=== PATIENT | female | born 1990 | race Caucasian/White ===

== ENCOUNTER → 2018-04-26 | Outpatient (CLI) | payer OTHER ==
--- NOTE | 2018-04-26 09:11 | XR ---
EXAMINATION TYPE: XR shoulder complete RT DATE OF EXAM: 04/26/2018 COMPARISON: NONE HISTORY: Pain TECHNIQUE: Three views are submitted. FINDINGS: The osseous structures are intact. There is no acute fracture or dislocation. The AC joint is maint ained. IMPRESSION: 1. No acute process.
== END | disposition home or self-care (01) ==
LOC: RADXRMAIN 08:43
PROVIDERS: ATTEND Nurse Practitioner Adult Health
DX: M25.511 Pain in right shoulder (principal)

== ENCOUNTER → 2018-12-06 | Outpatient (CLI) | payer OTHER | END | disposition home or self-care (01) | LOC: LABWHC1 09:28 | PROVIDERS: ATTEND Obstetrics & Gynecology | DX: N92.6 Irregular menstruation, unspecified (principal) | CPT/HCPCS: 36415; 84702 ==

== ENCOUNTER 2020-07-07 14:13 | Emergency (ER) | payer OTHER ==
[2020-07-07 14:23] VITALS: TEMP 98.4
--- NOTE | 2020-07-07 15:03 | ED ---
Chest Pain HPI - General Chief Complaint: Chest Pain Stated Complaint: Chest pain Time Seen by Provider: 07/07/20 14:51 Source: patient Mode of arrival: ambulatory Limitations: no limitations - History of Present Illness Initial Comments: 30-year-old female presenting to the emergency department with a chief complaint of chest pain or shortness of breath. Patient states symptoms began about 3 weeks ago with gradual increase in severity. Patient reports the increased with dyspnea on exertion. She also reports the pain is exacerbated when taking deep breaths. Patient states the pain is midsternal without any radiation. Denies any diaphoretic episodes, lightheadedness or dizziness. She denies any visual changes, headaches, one-sided weakness or paresthesias. Denies taking medication to alleviate the symptoms. She does report right-sided lower extremity swelling. She also reports some calf tenderness in the right leg as well. No previous history of DVT or PE. She does report a cough but states that is secondary to his smoking. Denies hemoptysis. She denies recent hospitalization. No chemotherapy or neoplasms. - Related Data Home Medications Medication Instructions Recorded Confirmed Ferrous Sulfate [Feosol] 325 mg PO DAILY 07/07/20 07/07/20 Allergies Allergy/AdvReac Type Severity Reaction Status Date / Time Sulfa (Sulfonamide Allergy Rash/Hives Verified 07/07/20 16:00 Antibiotics) Review of Systems ROS Statement: Those systems with pertinent positive or pertinent negative responses have been documented in the HPI. ROS Other: All systems not noted in ROS Statement are negative. EKG Findings - EKG Comments: EKG Findings:: Sinus rhythm with short WI. Ventricular rate 74, WI 110, QRS 84, QTC 452. Past Medical History Past Medical History: No Reported History History of Any Multi-Drug Resistant Organisms: None Reported Past Surgical History: Section Past Psychological History: Depression Smoking Status: Current every day smoker Past Alcohol Use History: Occasional Past Drug Use History: Marijuana General Exam Limitations: no limitations General appearance: alert, in no apparent distress Head exam: Present: atraumatic, normocephalic, normal inspection. Absent: other Eye exam: Present: normal appearance, PERRL, EOMI Pupils: Present: normal accommodation ENT exam: Present: normal exam, normal oropharynx, mucous membranes moist, TM's normal bilaterally, normal external ear exam Neck exam: Present: normal inspection, full ROM. Absent: tenderness Respiratory exam: Present: normal lung sounds bilaterally. Absent: respiratory distress, wheezes, rales Cardiovascular Exam: Present: regular rate, normal rhythm, normal heart sounds. Absent: systolic murmur GI/Abdominal exam: Present: soft. Absent: distended, tenderness, guarding Extremities exam: Present: normal inspection, full ROM, normal capillary refill. Absent: tenderness, pedal edema, joint swelling Back exam: Present: normal inspection, full ROM. Absent: tenderness, CVA tenderness (R), CVA tenderness (L), muscle spasm, paraspinal tenderness, vertebral tenderness Neurological exam: Present: alert, oriented X3, normal gait Psychiatric exam: Present: normal affect, normal mood Skin exam: Present: warm, dry, intact, normal color Course Vital Signs 07/07/20 07/07/20 07/07/20 14:20 15:30 17:18 Temperature 98.4 F Pulse Rate 91 75 Pulse Rate [ 72 Projects Manager ] Respiratory 18 16 Rate Blood Pressure 134/79 126/84 O2 Sat by Pulse 98 100 Oximetry Chest Pain MDM - MDM 30-year-old female presenting to the emergency room with a chief complaint of chest pain. On initial evaluation, patient did complain of some right lower extremity swelling. Atypical chest pain with atypical features. She did have positive Homans of the right lower extremity. Laboratory workup was initiated. There was a concern for a PE. CBC CMP is unremarkable. Chest x-ray is unremarkable. EKG showing sinus rhythm with short WI. Initial troponin is negative. D-dimer negative. Strict return parameters were thoroughly discussed with patient is a 17 agreeable. Case discussed with physician. Disposition Clinical Impression: Atypical chest pain Disposition: HOME SELF-CARE Condition: Stable Instructions (If sedation given, give patient instructions): Chest Pain (ED) Additional Instructions: Follow with the primary care physician. Return to emergency department if symptoms worsen. Is patient prescribed a controlled substance at d/c from ED?: No Referrals: June Lr NPC [Primary Care Provider] - 1-2 days Time of Disposition: 16:20
[2020-07-07 15:28] LABS: Basophils % (A) 0 %; Eosinophils % (A) 0 %; HCT 44.1 % (34.0-46.0); HGB 14.5 gm/dL (11.4-16.0); Lymphocytes # (A) 2.9 k/uL (1.0-4.8); Lymphocytes % (A) 33 %; MCHC 32.8 g/dL (31.0-37.0); MCV 100.5 fL (80.0-100.0); Mean Platelet Volume 7.9; Monocytes # (A) 0.4 k/uL (0-1.0); Monocytes % (A) 4 %; Neutrophils # (A) 5.3 k/uL (1.3-7.7); Neutrophils % (A) 61 %; Platelet Count 186 k/uL (150-450); RBC 4.39 m/uL (3.80-5.40); RDW 12.2 % (11.5-15.5); WBC 8.7 k/uL (3.8-10.6)
[2020-07-07 15:40] LABS: ALT 14 U/L (4-34); AST 27 U/L (14-36); African American GFR (CKD) >90 (>60 ml/min/1.73 sqM); Albumin 4.6 g/dL (3.5-5.0); Alkaline Phosphatase 45 U/L (38-126); Anion Gap 9 mmol/L; Blood Urea Nitrogen 15 mg/dL (7-17); Calcium 9.5 mg/dL (8.4-10.2); Carbon Dioxide 21 mmol/L (22-30); Chloride 106 mmol/L (98-107); Glucose 91 mg/dL (74-99); Magnesium 2.1 mg/dL (1.6-2.3); Non-African American GFR(CKD) >90 (>60 ml/min/1.73 sqM); Potassium 4.2 mmol/L (3.5-5.1); Sodium 136 mmol/L (137-145); Total Bilirubin 0.6 mg/dL (0.2-1.3); Total Protein 7.3 g/dL (6.3-8.2)
--- NOTE | 2020-07-07 15:49 | XR ---
EXAMINATION TYPE: XR chest 2V DATE OF EXAM: 07/07/2020 COMPARISON: NONE HISTORY: Chest pain TECHNIQUE: Frontal and lateral views of the chest are obtained. FINDINGS: There is no focal air space opacity. No evidence for pneumothorax. No pleural effusion. The cardiac silhouette size is within normal limits. The osseous structures are grossly intact. IMPRESSION: 1. No acute cardiopulmonary process.
[2020-07-07 15:58] LABS: INR 0.9 (<1.2); Partial Thromboplastin Time 21.1 sec (22.0-30.0); Prothrombin Time 9.7 sec (9.0-12.0)
[2020-07-07 16:01] LABS: D-Dimer <0.17 mg/L FEU (<0.60)
[2020-07-07 17:19] VITALS: BP 126/84; PULSE 75; RESP 16
== END 2020-07-07 16:50 | disposition home or self-care (01) ==
LOC: EC 14:13
DX: R07.89 Other chest pain (principal); M79.89 Other specified soft tissue disorders; F17.200 Nicotine dependence, unspecified, uncomplicated; Z79.899 Other long term (current) drug therapy; Z88.2 Allergy status to sulfonamides
CPT/HCPCS: 36415; 71046; 80053; 83735; 84484; 85025; 85379; 85610; 85730; 93005; 99285

== ENCOUNTER → 2020-10-28 | Outpatient (CLI) | payer BC, OTHER ==
--- NOTE | 2020-10-29 10:39 | MR ---
EXAMINATION TYPE: MR cervical spine wo con DATE OF EXAM: 10/28/2020 COMPARISON: None HISTORY: Neck pain, soreness, left and right shoulder/arm pain for 5+ years. CONTRAST: None TECHNIQUE: Multiplanar multiecho imaging on a 3.0 Dariela magnet is performed through the cervical spin e. FINDINGS: The craniovertebral junction is normal. Vertebral body alignment is normal. C7-T1: No focal disc herniation or significant disc bulge is evident. No spinal canal stenosis or n eural foraminal stenosis is present. C6-7: No focal disc herniation or significant disc bulge is evident. No spinal canal stenosis or jameson ral foraminal stenosis is present. C5-6: Mild broad-based disc bulge is present with mild anterior thecal sac compression. No cord conta ct or spinal canal stenosis is present. Neural foramen are patent.. C4-5: No focal disc herniation or significant disc bulge is evident. No spinal canal stenosis or jameson ral foraminal stenosis is present. C3-4: No focal disc herniation or significant disc bulge is evident. No spinal canal stenosis or jameson ral foraminal stenosis is present. C2-3: No focal disc herniation or significant disc bulge is evident. No spinal canal stenosis or jameson ral foraminal stenosis is present. IMPRESSIONS: 1. Mild disc bulge C5-C6 without stenosis
== END ==
LOC: RADMRIMAIN 10:56
PROVIDERS: ATTEND Psychiatry & Neurology Pain Medicine
DX: M50.222 Other cervical disc displacement at C5-C6 level (principal)
CPT/HCPCS: 72141

== ENCOUNTER 2021-06-04 09:15 | Emergency (ER) | payer BC, OTHER ==
[2021-06-04 09:20] VITALS: RESP 16
[2021-06-04] MEDS ORDERED: LIDOCAINE 1% INJ 10MG/ML (20 ML MDV) SQ ONE (09:29)
--- NOTE | 2021-06-04 09:29 | ED ---
Wound/Laceration HPI - General Chief Complaint: Wound/Laceration Stated Complaint: hand lac Source: patient, RN notes reviewed Mode of arrival: ambulatory Limitations: no limitations - History of Present Illness Initial Comments: Patient is 31-year-old female presented to ED for laceration to left hand. Patient states that while opening a box knife slipped and cut palmar aspect of her left hand between the first and second digit. Patient reports she still has feeling, sensation, and full range of motion in both first and second digit. Patient states last tetanus was within the last 3 years. Otherwise patient states she is doing well with moderate level of pain 5 out of 10 at this time. patient denies being on any blood thinners at this time. - Related Data Home Medications Medication Instructions Recorded Confirmed Ferrous Sulfate [Feosol] 325 mg PO DAILY 07/07/20 07/07/20 Allergies Allergy/AdvReac Type Severity Reaction Status Date / Time Sulfa (Sulfonamide Allergy Rash/Hives Verified 06/04/21 09:20 Antibiotics) Review of Systems ROS Statement: Those systems with pertinent positive or pertinent negative responses have been documented in the HPI. ROS Other: All systems not noted in ROS Statement are negative. Past Medical History Past Medical History: No Reported History History of Any Multi-Drug Resistant Organisms: None Reported Past Surgical History: Section Past Psychological History: Depression Smoking Status: Current every day smoker Past Alcohol Use History: Occasional Past Drug Use History: Marijuana General Exam Limitations: no limitations Head exam: Present: atraumatic, normocephalic, normal inspection Respiratory exam: Present: normal lung sounds bilaterally. Absent: respiratory distress, wheezes, rales, rhonchi, stridor Cardiovascular Exam: Present: regular rate, normal rhythm, normal heart sounds. Absent: systolic murmur, diastolic murmur, rubs, gallop, clicks Left General: Present: normal inspection Shoulder Exam: Present: normal inspection Upper Arm exam: Present: normal inspection Elbow exam: Present: normal inspection Forearm Wrist exam: Present: normal inspection Hand Wrist exam: Present: laceration (bosch surface between the first and second digit) Hand L/R Front: 1 - laceration Course Vital Signs 06/04/21 09:19 Temperature 97.5 F L Pulse Rate 107 H Respiratory 16 Rate Blood Pressure 118/78 O2 Sat by Pulse 99 Oximetry Procedures - Laceration Laceration #1 Consent Obtained: verbal consent Indication: laceration Site: hand (Palmar aspect between the first and second digit) Size (cm): 3 Description: flap Depth: simple, single layer Sedation/Analgesia: none Anesthetic Used: lidocaine 1% Anesthesia Technique: local infiltration Amount (mls): 5 Pre-repair: irrigated extensively Type of Sutures: nylon Size of Sutures: 4-0 Number of Sutures: 7 Technique: simple, interrupted Patient Tolerated Procedure: well Medical Decision Making - Medical Decision Making Social presented with laceration to left hand. Laceration was irrigated and cleaned, lidocaine SQ was used for local anesthetic, 7 sutures were placed. Antibiotic ointment and clean dressing was placed on top of laceration closure. Patient was instructed to come back in 10 days for suture removal. [id number] medication discuss for pain management. Return parameters were discussed. Disposition Clinical Impression: Laceration of hand Disposition: HOME SELF-CARE Condition: Stable Instructions (If sedation given, give patient instructions): Care For Your Stitches (ED), Laceration (ED) Additional Instructions: have sutures removed in 10 days. Please return to the Emergency Department if symptoms worsen or any other concerns. Is patient prescribed a controlled substance at d/c from ED?: No Referrals: Raghav Tomlin MD [Primary Care Provider] - 1-2 days
[2021-06-04] MEDS ORDERED: BACITRACIN OINT 1 EACH PACKET TOPICAL ONE (10:14)
[2021-06-04 10:45] VITALS: BP 129/78; PULSE 89; TEMP 98.5
== END 2021-06-04 10:42 | disposition home or self-care (01) ==
LOC: EC 09:15
DX: S61.412A Laceration without foreign body of left hand, initial encounter (principal); F32.9 Major depressive disorder, single episode, unspecified; F17.200 Nicotine dependence, unspecified, uncomplicated; F12.90 Cannabis use, unspecified, uncomplicated; Z88.2 Allergy status to sulfonamides; W26.0XXA Contact with knife, initial encounter
CPT/HCPCS: 99282; 12002; J2001

== ENCOUNTER 2022-05-16 06:08 | Inpatient (IN) | payer BC, OTHER ==
[2022-05-16] MEDS: LACTATED RINGERS 1,000 ML IV SCH ×2 (06:20→12:53)
[2022-05-16] MEDS ORDERED: CITRIC ACID-SODIUM CITRATE 15 ML CUP PO ONE (06:21)
[2022-05-16 06:42] LABS: Basophils % (A) 0 %; Eosinophils % (A) 0 %; HCT 32.9 % (34.0-46.0); HGB 11.2 gm/dL (11.4-16.0); Lymphocytes # (A) 2.9 k/uL (1.0-4.8); Lymphocytes % (A) 29 %; MCH 32.3 pg (25.0-35.0); MCV 95.2 fL (80.0-100.0); Mean Platelet Volume 8.3; Monocytes # (A) 0.7 k/uL (0-1.0); Monocytes % (A) 6 %; Neutrophils # (A) 6.3 k/uL (1.3-7.7); Neutrophils % (A) 62 %; Platelet Count 255 k/uL (150-450); RBC 3.46 m/uL (3.80-5.40); RDW 12.4 % (11.5-15.5); WBC 10.1 k/uL (3.8-10.6)
--- NOTE | 2022-05-16 07:43 | P.HPOB ---
History of Present Illness H&P Date: 05/16/22 Chief Complaint: repeat low transverse with tubal ligation 32-year-old presents at 36 weeks and 3 days for repeat low transverse C- section and tubal ligation. She had a classical in the past and maternal medicine recommended to deliver her between 36 and 37 weeks for this reason. She was given steroid injections for the baby's lungs on May 08 of May 09. Review of Systems All systems: negative Constitutional: Denies chills, Denies fever Eyes: denies blurred vision, denies pain Ears, nose, mouth and throat: Denies headache, Denies sore throat Cardiovascular: Denies chest pain, Denies shortness of breath Respiratory: Denies cough Gastrointestinal: Denies abdominal pain, Denies diarrhea, Denies nausea, Denies vomiting Genitourinary: Denies dysuria, Denies hematuria Musculoskeletal: Denies myalgias Integumentary: Denies pruritus, Denies rash Neurological: Denies numbness, Denies weakness Psychiatric: Denies anxiety, Denies depression Endocrine: Denies fatigue, Denies weight change Past Medical History Past Medical History: No Reported History History of Any Multi-Drug Resistant Organisms: None Reported Past Surgical History: Section Past Anesthesia/Blood Transfusion Reactions: No Reported Reaction Past Psychological History: Depression Smoking Status: Former smoker Past Drug Use History: Marijuana Additional Drug Use History / Comment(s): Former smoker - Past Family History Father Family Medical History: Chest Pain / Angina, CVA/TIA Medications and Allergies Home Medications Medication Instructions Recorded Confirmed Type Pnv No.154/Iron Fum/Folic Acid 1 each PO DAILY 05/16/22 05/16/22 History [ Plus Vitamin Tablet] Allergies Allergy/AdvReac Type Severity Reaction Status Date / Time Sulfa (Sulfonamide Allergy Rash/Hives Verified 05/16/22 06:19 Antibiotics) Exam Osteopathic Statement: *. No significant issues noted on an osteopathic st ructural exam other than those noted in the History and Physical/Consult. Vital Signs Temp Pulse Resp BP Pulse Ox 05/16/22 06:17 96.8 F L 96 16 128/81 97 Intake and Output 05/15/22 05/16/22 05/16/22 22:59 06:59 14:59 Other: Weight 80.739 kg Heart: Regular rate and rhythm Lungs: Clear to auscultation bilaterally Abdomen: Soft, nontender Extremities: Negative Homans sign Results Result Diagrams: 05/16/22 06:25 Abnormal Lab Results - Last 24 Hours (Table) 05/16/22 Range/Units 06:25 RBC 3.46 L (3.80-5.40) m/uL Hgb 11.2 L (11.4-16.0) gm/dL Hct 32.9 L (34.0-46.0) % Assessment and Plan (1) History of classical section Current Visit: Yes Status: Acute Code(s): Z98.891 - HISTORY OF UTERINE SCAR FROM PREVIOUS SURGERY SNOMED Code(s): 063522411 (2) 36 to 37 weeks gestation of Current Visit: Yes Status: Acute Code(s): XNK1084 - SNOMED Code(s): 260863221 (3) Family planning Current Visit: Yes Status: Acute Code(s): Z30.09 - ENCOUNTER FOR OTH GENERAL CNSL AND ADVICE ON CONTRACEPTION SNOMED Code(s): 496466302 Plan: 1. Repeat low transverse with tubal ligation
[2022-05-16] MEDS ORDERED: ONDANSETRON 4 MG/2 ML VIAL ONE (08:04)
[2022-05-16] MEDS ORDERED: MORPHINE SULFATE (PF) 0.3 MG/0.3 ML SYR ONE (08:04)
[2022-05-16] MEDS ORDERED: KETOROLAC 15 MG/ML 1 ML VIAL ONE (08:04)
[2022-05-16] MEDS ORDERED: OXYTOCIN 30 UNITS/500 ML NS BAG IV ONE (08:04)
[2022-05-16] MEDS ORDERED: diphenhydrAMINE 50 MG/ML 1 ML VIAL IVP PRN ×2 (08:43)
[2022-05-16] MEDS ORDERED: ONDANSETRON 4 MG/2 ML VIAL IVP PRN (08:43)
[2022-05-16] MEDS ORDERED: diphenhydrAMINE 50 MG CAP PO PRN (08:43)
[2022-05-16] MEDS ORDERED: LANOLIN CREAM 5 GM TUBE TOPICAL PRN (08:43)
[2022-05-16] MEDS ORDERED: diphenhydrAMINE 25 MG CAP PO PRN (08:43)
[2022-05-16] MEDS ORDERED: METOCLOPRAMIDE 5 MG/ML 2 ML VIAL IVP PRN (08:43)
[2022-05-16] MEDS ORDERED: NALOXONE 0.4 MG/ML 1 ML VIAL IV PRN (08:43)
[2022-05-16] MEDS ORDERED: ZOLPIDEM 5 MG TAB PO PRN (08:43)
[2022-05-16] MEDS ORDERED: OXYTOCIN 30 UNITS/500 ML NS 30 UNIT in SALINE 1 500ML.BAG IV SCH (08:45)
[2022-05-16] MEDS: ACETAMINOPHEN TAB 500 MG TAB PO SCH ×2 (11:23→18:04)
[2022-05-16] MEDS: IBUPROFEN 600 MG TAB PO SCH ×2 (14:20→21:13)
--- NOTE | 2022-05-16 16:57 | P.OP ---
Date of Procedure: 05/16/22 Preoperative Diagnosis: 1. Previous classical section 2. 36 weeks and 3 days 3. Status post betamethasone 2 4. Family planning Postoperative Diagnosis: 1. Previous classical section 2. 36 weeks and 3 days 3. Status post betamethasone 2 4. Family planning Procedure(s) Performed: Repeat low transverse with tubal ligation Anesthesia: spinal Surgeon: Desi Ruelas Animal Surgeon #1: Lisa Herron Estimated Blood Loss (ml): 574 IV fluids (ml): 500 Urine output (ml): 200 Pathology: other (Bilateral fallopian tube segments) Condition: stable Disposition: floor Operative Findings: Viable male, Apgars 8, 9, weight 6 lbs. 6 oz. Normal uterus, tubes, ovaries. Description of Procedure: Patient was taken to the operating room where spinal anesthesia was found be adequate. She was prepped and draped in normal sterile fashion in dorsal supine position with a leftward tilt. Pfannenstiel skin incision was made the scalpel and carried through to the underlying layer of fascia with the scalpel. Fascia was incised in midline and carried bilaterally with the Velez scissors. The superior aspect of the fascial incision was grasped with [place] clamps elevated and the underlying rectus muscles dissected off with the Velez's. Attention was then turned to inferior aspect of same incision which in a similar fashion was grasped tented up and the underlying rectus muscles dissected off with the Velez's. The rectus muscles were the midline and the peritoneum was identified tented up and entered sharply with the scalpel. The incision was extended superiorly and inferiorly with good visualization of the bladder. The bladder blade was inserted and the vesicouterine peritoneum was incised the Metzenbaums then carried bilaterally and bladder flap created digitally. A low transverse incision was then made on the uterus with the scalpel. This was carried bilaterally and digital manner. Infant's head delivered atraumatically, nose and mouth bulb suctioned, cord clamped and cut, handed off to waiting nurses. Apgars 8,9, weight 6 lbs. 6 oz. Placenta delivered manually, intact with three-vessel cord. The uterus is exteriorized and cleared of all clots and debris. The uterine incision was closed with 0 Vicryl in a running locked fashion. Second layer of the same sutures used in imbricating fashion to obtain excellent hemostasis. Both ovaries and tubes appeared normal. The right fallopian tube was grasped with a hemostat and a window was made in the mesosalpinx with the Bovie. The right fallopian was 2 was doubly ligated and a segment was removed. The pedicles were cauterized with the Bovie. The left fallopian tube was then grasped with a hemostat and a window was made in the mesosalpinx with the Bovie. The left fallopian tube was doubly ligated and a segment was removed, pedicles cauterized with the Bovie. The uterus was placed back into the abdomen. The peritoneum was reapproximated using 2-0 Vicryl in a running fashion. The muscles were reapproximated using 2-0 Vicryl in interrupted fashion. The fascia was reapproximated using 0 Vicryl in a running fashion. The subcutaneous tissues closed with 3-0 Vicryl running fashion. The skin was closed karen. Patient tolerated the procedure well, sponge and instrument counts were correct times 2 and she was taken to the recovery room in stable condition.
[2022-05-16] MEDS: SENNOSIDES-DOCUSATE SODIUM 1 EACH TAB PO SCH (19:54)
[2022-05-16] MEDS: KETOROLAC 15 MG/ML 1 ML VIAL IVP SCH (21:16)
[2022-05-17] MEDS: ACETAMINOPHEN TAB 500 MG TAB PO SCH ×5 (00:27→22:09)
[2022-05-17] MEDS: LACTATED RINGERS 1,000 ML IV SCH ×2 (00:28→21:04)
[2022-05-17] MEDS: KETOROLAC 15 MG/ML 1 ML VIAL IVP SCH ×3 (00:29→22:17)
[2022-05-17] MEDS: IBUPROFEN 600 MG TAB PO SCH ×4 (05:03→21:04)
[2022-05-17 06:54] LABS: Basophils % (A) 0 %; Eosinophils % (A) 0 %; HCT 32.7 % (34.0-46.0); HGB 10.9 gm/dL (11.4-16.0); Lymphocytes # (A) 2.4 k/uL (1.0-4.8); Lymphocytes % (A) 19 %; MCH 32.2 pg (25.0-35.0); MCHC 33.5 g/dL (31.0-37.0); MCV 96.1 fL (80.0-100.0); Mean Platelet Volume 8.7; Monocytes # (A) 0.7 k/uL (0-1.0); Monocytes % (A) 6 %; Neutrophils # (A) 9.2 k/uL (1.3-7.7); Neutrophils % (A) 73 %; Platelet Count 240 k/uL (150-450); RDW 12.3 % (11.5-15.5); WBC 12.5 k/uL (3.8-10.6)
[2022-05-17] MEDS: SENNOSIDES-DOCUSATE SODIUM 1 EACH TAB PO SCH ×2 (08:55→19:36)
--- NOTE | 2022-05-17 09:10 | P.PN ---
Progress Note - Text Progress Note Date: 05/17/22 (996) Anesthesia Postop day 1 Subjective: Status Post section with Duramorph. Patient seen and examined. Doing well without complaint. VAS 5 out of 10rest able patient has ambulated. No nausea vomiting or pruritus. Afebrile. Gross lower extremity strength intact. Spinal site intact without induration. Without apparent anesthetic complications. Objective: Vital signs reviewed Heart: Regular Rate Lungs: Good chest excursion Abdomen: Appears nondistended Assessment: Status post with Duramorph postop day 1 Plan: Continue current care with your medical management. Anticipated and the Duramorph around 10am tonight, you may see increased pain needs around this time.
--- NOTE | 2022-05-17 09:42 | P.PNOBGPC ---
Subjective - Subjective Principal diagnosis: Status post repeat low transverse day #1 Interval history: Patient seen and examined. Denies nausea, vomiting, chest pain, short of breath or any calf pain. She is passing flatus and tolerating regular diet. Patient reports: Reports appetite normal, Reports voiding normally, Reports pain well controlled, Reports ambulating normally [place]: doing well Objective - Vital Signs Latest vital signs: Vital Signs Temp Pulse Resp BP Pulse Ox 05/17/22 04:00 97.8 F 77 16 108/66 97 05/17/22 00:00 98.6 F 77 16 109/65 97 05/16/22 20:00 97.6 F 73 16 116/72 97 05/16/22 15:54 72 05/16/22 15:39 97.4 F L 72 17 124/75 05/16/22 13:31 97.3 F L 98 16 132/77 05/16/22 13:00 97.6 F 78 16 134/79 97 05/16/22 10:54 96.0 F L 64 18 119/75 100 05/16/22 10:24 97.2 F L 78 18 113/69 100 05/16/22 09:54 96.5 F L 75 18 110/66 98 Intake and Output 05/16/22 05/17/22 05/17/22 22:59 06:59 14:59 Output Total 1200 700 Balance -1200 -700 Output: Urine 1200 700 Uretheral (Aguilar) 900 Emesis 0 - Exam Lungs: bilateral: normal Chest: Normal S1, Normal S2 Extremities: Present: normal Abdomen: Present: normal appearance, soft. Absent: distention, tenderness Incision: Present: normal, dry, intact Uterus: Present: normal, firm - Labs Labs: Abnormal Lab Results - Last 24 Hours (Table) 05/17/22 Range/Units 06:36 WBC 12.5 H (3.8-10.6) k/uL RBC 3.40 L (3.80-5.40) m/uL Hgb 10.9 L (11.4-16.0) gm/dL Hct 32.7 L (34.0-46.0) % Neutrophils # 9.2 H (1.3-7.7) k/uL Assessment and Plan (1) History of classical section Current Visit: Yes Status: Resolved Code(s): Z98.891 - HISTORY OF UTERINE SCAR FROM PREVIOUS SURGERY SNOMED Code(s): 298969092 (2) 36 to 37 weeks gestation of Current Visit: Yes Status: Resolved Code(s): EEO9468 - SNOMED Code(s): 034251293 (3) Family planning Current Visit: Yes Status: Resolved Code(s): Z30.09 - ENCOUNTER FOR OTH GENERAL CNSL AND ADVICE ON CONTRACEPTION SNOMED Code(s): 425058291 (4) Status post repeat low transverse section Current Visit: Yes Status: Acute Code(s): Z98.891 - HISTORY OF UTERINE SCAR FROM PREVIOUS SURGERY SNOMED Code(s): 006467221 Plan: 1. Continue care and postoperative care
[2022-05-17] MEDS: SIMETHICONE 80 MG CHEWABLE PO PRN (13:20)
[2022-05-18] MEDS: IBUPROFEN 600 MG TAB PO SCH ×4 (01:45→20:00)
[2022-05-18] MEDS: ACETAMINOPHEN TAB 500 MG TAB PO SCH ×4 (04:47→23:48)
[2022-05-18] MEDS: SENNOSIDES-DOCUSATE SODIUM 1 EACH TAB PO SCH ×2 (07:51→20:00)
[2022-05-18] MEDS: SIMETHICONE 80 MG CHEWABLE PO PRN (09:30)
--- NOTE | 2022-05-18 11:20 | P.PNOBGPC ---
Subjective - Subjective Principal diagnosis: Status post repeat low transverse with tubal ligation postop day2 Interval history: Patient seen and examined. She is tolerating regular diet and passing flatus but still a little bit distended. Denies nausea, vomiting, chest pain, short ness of breath or calf pain. Patient reports: Reports appetite normal, Reports voiding normally, Reports pain well controlled, Reports ambulating normally [place]: doing well Objective - Vital Signs Latest vital signs: Vital Signs Temp Pulse Resp BP Pulse Ox 05/18/22 08:00 98.7 F 93 16 121/75 05/17/22 22:15 98.1 F 84 18 124/67 97 05/17/22 15:45 98.2 F 83 20 111/68 98 - Exam Lungs: bilateral: normal Chest: Normal S1, Normal S2 Extremities: Present: normal Abdomen: Present: normal appearance, soft. Absent: distention, tenderness Incision: Present: normal, dry, intact Uterus: Present: normal, firm Assessment and Plan (1) History of classical section Current Visit: Yes Status: Resolved Code(s): Z98.891 - HISTORY OF UTERINE SCAR FROM PREVIOUS SURGERY SNOMED Code(s): 998105217 (2) 36 to 37 weeks gestation of Current Visit: Yes Status: Resolved Code(s): ZYA7702 - SNOMED Code(s): 876483683 (3) Family planning Current Visit: Yes Status: Resolved Code(s): Z30.09 - ENCOUNTER FOR OT GENERAL CNSL AND ADVICE ON CONTRACEPTION SNOMED Code(s): 254370201 (4) Status post repeat low transverse section Current Visit: Yes Status: Acute Code(s): Z98.891 - HISTORY OF UTERINE SCAR FROM PREVIOUS SURGERY SNOMED Code(s): 979737673 Plan: 1. Continue postoperative care
[2022-05-19] MEDS: IBUPROFEN 600 MG TAB PO SCH ×4 (01:48→21:08)
[2022-05-19] MEDS: ACETAMINOPHEN TAB 500 MG TAB PO SCH ×3 (05:53→20:24)
[2022-05-19] MEDS: SENNOSIDES-DOCUSATE SODIUM 1 EACH TAB PO SCH ×2 (08:06→20:25)
--- NOTE | 2022-05-19 08:36 | P.DS ---
Providers Date of admission: 05/16/22 06:08 Expected date of discharge: 05/19/22 Attending physician: Desi Ruelas Primary care physician: Stated None - Discharge Diagnosis(es) (1) History of classical section Current Visit: Yes Status: Resolved (2) 36 to 37 weeks gestation of Current Visit: Yes Status: Resolved (3) Family planning Current Visit: Yes Status: Resolved (4) Status post repeat low transverse section Current Visit: Yes Status: Acute Hospital Course: Patient presented for repeat low transverse and tubal ligation. She underwent this procedure without complication. Postoperatively her pain is well-controlled. She is tolerating her diet and passing flatus. She denies nausea, vomiting, chest pain, shortness of breath or any calf pain. Her incision is clean, dry, intact. Patient will be discharged home post operative day #3 in stable condition to follow-up with me in one week. Plan - Discharge Summary New Discharge Prescriptions: New oxyCODONE HCL [OxyIR] 10 mg PO Q4HR PRN #18 tab PRN Reason: Pain Scale 7 - 10 Ibuprofen [Motrin] 600 mg PO Q6H #40 tab No Action Pnv No.154/Iron Fum/Folic Acid [ Plus Vitamin Tablet] 1 each PO DAILY Discharge Medication List Pnv No.154/Iron Fum/Folic Acid [ Plus Vitamin Tablet] 1 each PO DAILY 05/16/22 [History] Ibuprofen [Motrin] 600 mg PO Q6H #40 tab 05/19/22 [Rx] oxyCODONE HCL [OxyIR] 10 mg PO Q4HR PRN #18 tab 05/19/22 [Rx] Follow up Appointment(s)/Referral(s): Desi Ruelas DO [Doctor of Osteopathic Medicine] - 06/28/22 11:15 am (Post Op appointment 05-23-2022 at 1:30) Discharge Disposition: HOME SELF-CARE
[2022-05-19] MEDS: SIMETHICONE 80 MG CHEWABLE PO PRN (20:25)
[2022-05-20] MEDS: IBUPROFEN 600 MG TAB PO SCH (02:59)
[2022-05-20] MEDS: ACETAMINOPHEN TAB 500 MG TAB PO SCH ×3 (03:00→07:56)
[2022-05-20 09:55] VITALS: BP 116/75; PULSE 68; RESP 14; TEMP 98.1
[2022-05-20] MEDS: SENNOSIDES-DOCUSATE SODIUM 1 EACH TAB PO SCH (09:57)
== END 2022-05-20 09:58 | disposition home or self-care (01) | DRG 785 ==
LOC: 4FBP 06:08
PROVIDERS: ADMIT Obstetrics & Gynecology; ATTEND Obstetrics & Gynecology
PROC: 10D00Z1 Extraction of Products of Conception, Low, Open Approach (ICD-10-PCS; principal; 2022-05-16 08:00)
PROC: 0UB70ZZ Excision of Bilateral Fallopian Tubes, Open Approach (ICD-10-PCS; principal; 2022-05-16 08:00)
DX: O34.212 Maternal care for vertical scar from previous cesarean delivery (principal); O34.211 Maternal care for low transverse scar from previous cesarean delivery; O99.344 Other mental disorders complicating childbirth; F32.A Depression, unspecified; Z30.2 Encounter for sterilization; Z87.891 Personal history of nicotine dependence; Z88.2 Allergy status to sulfonamides; Z3A.36 36 weeks gestation of pregnancy; Z37.0 Single live birth
CPT/HCPCS: 85025; 86850; 86900; 86901; 88302

== ENCOUNTER 2022-11-20 10:48 | Emergency (ER) | payer OTHER, BC ==
[2022-11-20 11:04] VITALS: BP 134/88; PULSE 101; RESP 18; TEMP 97.6
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
--- NOTE | 2022-11-20 12:06 | XR ---
EXAMINATION TYPE: XR hand complete LT DATE OF EXAM: 11/20/2022 COMPARISON: NONE HISTORY: Pain TECHNIQUE: Three views are submitted. FINDINGS: The osseous structures are intact. The joint spaces are preserved and there is no acute fracture or dislocation. Scaphoid not well seen on the oblique. IMPRESSION: 1. No definite acute fracture or dislocation if symptoms persist, follow-up study in 7 to 10 days wo uld be suggested. If there is pain within the scaphoid recommend wrist series.
--- NOTE | 2022-11-20 12:09 | XR ---
EXAMINATION TYPE: XR knee complete LT DATE OF EXAM: 11/20/2022 COMPARISON: NONE HISTORY: pain TECHNIQUE: Three views are submitted. FINDINGS: Joint spaces are preserved. Osseous structures are intact. No acute fracture seen. IMPRESSION: 1. No acute fracture or dislocation.
== END 2022-11-20 13:11 | disposition home or self-care (01) ==
LOC: EC 10:48
DX: S60.222A Contusion of left hand, initial encounter (principal); M25.562 Pain in left knee; F12.90 Cannabis use, unspecified, uncomplicated; Z87.891 Personal history of nicotine dependence; Z88.2 Allergy status to sulfonamides; V43.52XA Car driver injured in collision with other type car in traffic accident, initial encounter; Y92.410 Unspecified street and highway as the place of occurrence of the external cause

== ENCOUNTER → 2023-08-30 | Outpatient (CLI) | payer BC, OTHER ==
[2023-08-30 16:14] LABS: Basophils # (A) 0.03 X 10*3/uL (0.00-0.10); Basophils % (A) 0.4 %; Eosinophils # (A) 0.07 X 10*3/uL (0.04-0.35); Eosinophils % (A) 0.9 %; HCT 40.7 % (37.2-46.3); HGB 13.6 g/dL (12.0-15.0); Lymphocytes # (A) 3.42 X 10*3/uL (0.90-5.00); Lymphocytes % (A) 44.8 %; MCH 30.8 pg (27.0-32.0); MCHC 33.4 g/dL (32.0-37.0); MCV 92.3 FL (80.0-97.0); Mean Platelet Volume 10.3 FL (9.5-12.2); Monocytes # (A) 0.43 X 10*3/uL (0.20-1.00); Monocytes % (A) 5.6 %; NRBC Per 100 WBC 0 X 10*3/uL (0.00-0.01); Neutrophils # (A) 3.68 X 10*3/uL (1.80-7.70); Neutrophils % (A) 48.2 %; Platelet Count 330 X 10*3/uL (140-440); RBC 4.41 X 10*6/uL (4.10-5.20); RDW 13.2 % (11.5-14.5); WBC 7.64 X 10*3/uL (4.50-10.00)
[2023-08-30 16:32] LABS: ALT 17 U/L (8-44); AST 14 U/L (13-35); Albumin 4.3 g/dL (3.8-4.9); Albumin/Globulin Ratio 1.87 Ratio (1.60-3.17); Alkaline Phosphatase 95 U/L (41-126); Blood Urea Nitrogen 16.4 mg/dL (9.0-27.0); Calcium 9.4 mg/dL (8.7-10.3); Carbon Dioxide 22.3 mmol/L (21.6-31.8); Chloride 106 mmol/L (96-109); Chol/HDL Ratio 3.96 Ratio; Globulin 2.3 g/dL (1.6-3.3); Glucose 96 mg/dL (70-110); LDL Cholesterol,Calculated 140.2 mg/dL (0.0-131.0); Potassium 4.5 mmol/L (3.5-5.5); Sodium 140 mmol/L (135-145); Total Bilirubin 0.3 mg/dL (0.3-1.2); Total Protein 6.6 g/dL (6.2-8.2); Uric Acid 4.9 mg/dL (2.9-7.7)
== END | disposition home or self-care (01) ==
LOC: LABWHC1 09:57
PROVIDERS: ATTEND Internal Medicine
DX: Z00.00 Encounter for general adult medical examination without abnormal findings (principal); Z11.59 Encounter for screening for other viral diseases; E55.9 Vitamin D deficiency, unspecified; M25.561 Pain in right knee
CPT/HCPCS: 36415; 80053; 80061; 82306; 84443; 84550; 85025; 86803

== ENCOUNTER → 2023-09-25 | Outpatient (CLI) | payer BC, OTHER ==
--- NOTE | 2023-09-28 17:18 | P.HOLTER ---
24 Hour Holter monitor note: Patient wore a Holter monitor for 24 hrs from 09/25/2023 through 09/26/2023. Findings: Patient's baseline heart rate was normal sinus rhythm. There were no signficant atrial fibrillation, atrial flutter, or ventricular tachycardia episodes. There were no significant pauses greater than 2 seconds. Patient's minimum heart rate was 70. Patient's maximum heart rate was 141. Patient's average heart rate was 92. There were rare PVCs and PACs. Patient had 2 activated events corresponding with sinus tachycardia at 111 bpm. Conclusions: 24-hour Holter monitor showing rare PVCs and PACs and otherwise sinus rhythm. Patient activated events corresponding with sinus tachycardia.
--- NOTE | 2023-10-02 09:18 | HM ---
24 Hour Holter monitor note: Patient wore a Holter monitor for 24 hrs from 09/25/2023 through 09/26/2023. Findings: Patient's baseline heart rate was normal sinus rhythm. There were no significant atrial fibrillation, atrial flutter, or ventricular tachycardia episodes. There were no significant pauses greater than 2 seconds. Patient's minimum heart rate was 70. Patient's maximum heart rate was 141. Patient's average heart rate was 92. There were rare PVCs and PACs. Patient had 2 activated events corresponding with sinus tachycardia at 111 bpm. Conclusions: 24-hour Holter monitor showing rare PVCs and PACs and otherwise sinus rhythm. Patient activated events corresponding with sinus tachycardia. [facility]
== END | disposition home or self-care (01) ==
LOC: RADECHMAIN 07:28
PROVIDERS: ATTEND Internal Medicine
DX: R00.2 Palpitations (principal)
CPT/HCPCS: 93225; 93226

== ENCOUNTER 2024-07-15 20:36 | Emergency (ER) | payer OTHER ==
[2024-07-15 20:40] VITALS: TEMP 97.8
--- NOTE | 2024-07-15 21:06 | ED ---
URI HPI - General Chief Complaint: Chest Pain Stated Complaint: Chest Pain,Sob Time Seen by Provider: 07/15/24 20:44 Source: patient, RN notes reviewed Mode of arrival: ambulatory Limitations: no limitations - History of Present Illness Initial Comments: This is a 34-year-old female who presents to the emergency department for coughing, congestion, chest pain, and shortness of breath. States that over the last week she has been dealing with a cough and congestion. She had started to feel better over the last couple of days, however this morning she got much worse again. States that it is painful to breathe and cough and she is coughing to the point of vomiting. 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 Denies any fevers or chills. MD Complaint: cough, nasal congestion - Related Data Home Medications Medication Instructions Recorded Confirmed Calcium Carbonate [Calcium] 1 tab PO DAILY 05/09/22 05/09/22 Cholecalciferol (Vitamin D3) 1 tab PO DAILY 05/09/22 05/09/22 [Vitamin D3 (3000 Iu)] Magnesium 1 tab PO DAILY 05/09/22 05/09/22 Vit No.179/Iron/Folic 1 tab PO DAILY 05/09/22 05/09/22 [ Tablet] Cyclobenzaprine [Flexeril] 5 - 10 mg PO TID PRN 11/20/22 11/20/22 Ibuprofen [Motrin] 600 mg PO Q6H PRN 11/20/22 11/20/22 Previous Rx's Medication Instructions Recorded Benzonatate [Tessalon Perle] 200 mg PO Q8H PRN #20 capsule 07/15/24 Levofloxacin [Levaquin] 750 mg PO DAILY 5 Days #5 tab 07/15/24 Promethazine/Dextromethorphan 5 ml PO Q4-6H PRN #250 ml 07/15/24 [Promethazine-Dm 6.25-15 mg/5Ml] Allergies Allergy/AdvReac Type Severity Reaction Status Date / Time Penicillins Allergy Anaphylaxis Verified 07/15/24 20:41 Sulfa (Sulfonamide Allergy Rash/Hives Verified 07/15/24 20:41 Antibiotics) Review of Systems ROS Statement: Those systems with pertinent positive or pertinent negative responses have been documented in the HPI. ROS Other: All systems not noted in ROS Statement are negative. Past Medical History Past Medical History: No Reported History History of Any Multi-Drug Resistant Organisms: None Reported Past Surgical History: Section Past Anesthesia/Blood Transfusion Reactions: No Reported Reaction Past Psychological History: Depression Smoking Status: Former smoker, Never smoker Past Alcohol Use History: Occasional Past Drug Use History: Marijuana - Past Family History Father Family Medical History: Chest Pain / Angina, CVA/TIA General Exam Limitations: no limitations General appearance: alert, in no apparent distress Head exam: Present: atraumatic, normocephalic, normal inspection Respiratory exam: Present: normal lung sounds bilaterally. Absent: respiratory distress, wheezes, rales, rhonchi, stridor Cardiovascular Exam: Present: regular rate, normal rhythm, normal heart sounds. Absent: systolic murmur, diastolic murmur, rubs, gallop, clicks Neurological exam: Present: alert, oriented X3, CN II-XII intact Psychiatric exam: Present: normal affect, normal mood Skin exam: Present: warm, dry, intact, normal color. Absent: rash Course Vital Signs 07/15/24 07/15/24 07/15/24 20:37 22:14 23:31 Temperature 97.8 F Pulse Rate 87 70 71 Respiratory 20 16 18 Rate Blood Pressure 127/72 121/77 116/92 O2 Sat by Pulse 99 98 99 Oximetry Medical Decision Making - Medical Decision Making This is a 34-year-old female who presents to the emergency department for coughing, congestion, chest pain, and shortness of breath. Was pt. sent in by a medical professional or institution? @ -No Did you speak to anyone other than the patient for history? @ -No Did you review nursing and triage notes? @ -Yes, and I agree, it is accurate with regards to the patient's symptoms. Were old charts reviewed? @ -No Differential Diagnosis? @ -Differential Cough: Influenza, Covid, RSV, croup, allergic rhinitis, GERD, pneumonia, bronchitis, COPD, viral pharyngitis, streptococcal pharyngitis, this is not meant to be an all-inclusive list. EKG interpreted by me (3pts min.)? @ -EKG interpreted by me demonstrating the following: Sinus rhythm. Ventricular rate 67 bpm, MN interval 130 ms, QRS duration 87 ms, QTc 427 ms. X-rays interpreted by me (1pt min.)? @ -Chest x-ray obtained. My interpretation identifies opacities in the right lower lung. CT interpreted by me (1pt min.)? @ -Not obtained U/S interpreted by me (1pt. min.)? @ -Not obtained What testing was considered but not performed? (CT, X-rays, U/S, labs)? Why? @ -None What meds were considered but not given? Why? @ -None Did you discuss the management of the patient with other professionals? @ -No Did you reconcile home meds? @ -No Was smoking cessation discussed for >3mins.? @ -No Was critical care preformed (if so, how long)? @ -No Were there social determinants of health that impacted care today? How? (Homelessness, low income, unemployed, alcoholism, drug addiction, transportation, low edu. Level, literacy, decrease access to med. care, detention, rehab)? @ -No Was there de-escalation of care discussed even if they declined? (Discuss DNR or withdrawal of care, Hospice)? @ -No What co-morbidities impacted this encounter? (DM, HTN, Smoking, COPD, CAD, Cancer, CVA, Hep., AIDS, mental health diagnosis, sleep apnea, morbid obesity)? @ -None Was patient admitted / discharged? @ -Discharged. Lab work unremarkable including a negative troponin and negative D-dimer. COVID, influenza, and RSV testing negative. Chest x-ray demonstrates hazy airspace disease in the right lower lung that may relate to an infectious/inflammatory process. Findings reviewed with the patient in that she may have an early pneumonia. Symptoms treated in the emergency department. She was given a dose of IVPB Levaquin. Prescription for Levaquin provided as well as Tessalon Perles and Promethazine DM cough syrup. Advised ibuprofen and Tylenol as needed for pain relief and follow-up with her PCP. Patient discharged home in stable condition. Case discussed with ED attending Dr. Chapman. Return precautions reviewed in depth, the patient is instructed to return to the emergency department with any new, worsening, or concerning symptoms. Patient verbalized understanding. Undiagnosed new problem with uncertain prognosis? @ -None Drug Therapy requiring intensive monitoring for toxicity (Heparin, Nitro, Insulin, Cardizem)? @ -None Were any procedures done? @ -None Diagnosis/symptom? @ -Pneumonia, pleurisy Acute, or Chronic, or Acute on Chronic? @ -Acute Uncomplicated (without systemic symptoms) or Complicated (systemic symptoms)? @ -Uncomplicated Side effects of treatment? @ -None Exacerbation, Progression, or Severe Exacerbation] @ -Not applicable Poses a threat to life or bodily function? @ -No - Lab Data Result diagrams: 07/15/24 21:28 07/15/24 21:28 Lab Results 07/15/24 07/15/24 07/15/24 Range/Units 21:28 21: 21:28 WBC 9.7 (3.8-10.6) k/uL RBC 4.30 (3.80-5.40) m/uL Hgb 13.5 (11.4-16.0) gm/dL Hct 40.3 (34.0-46.0) % MCV 93.6 (80.0-100.0) fL MCH 31.3 (25.0-35.0) pg MCHC 33.4 (31.0-37.0) g/dL RDW 12.1 (11.5-15.5) % Plt Count 229 (150-450) k/uL MPV 7.3 Neutrophils % 59 % Lymphocytes % 33 % Monocytes % 5 % Eosinophils % 1 % Basophils % 1 % Neutrophils # 5.7 (1.3-7.7) k/uL Lymphocytes # 3.2 (1.0-4.8) k/uL Monocytes # 0.5 (0-1.0) k/uL Eosinophils # 0.1 (0-0.7) k/uL Basophils # 0.1 (0-0.2) k/uL PT 9.6 L (10.0-12.5) sec INR 0.8 (<1.2) APTT 25.0 (22.0-30.0) sec D-Dimer 0.26 (<0.60) mg/L FEU Sodium 138 (137-145) mmol/L Potassium 4.1 (3.5-5.1) mmol/L Chloride 108 H (98-107) mmol/L Carbon Dioxide 23 (22-30) mmol/L Anion Gap 7 mmol/L BUN 11 (7-17) mg/dL Creatinine 0.65 (0.52-1.04) mg/dL Est GFR (CKD-EPI)AfAm >90 (>60 ml/min/1.73 sqM) Est GFR (CKD-EPI)NonAf >90 (>60 ml/min/1.73 sqM) Glucose 99 (74-99) mg/dL Calcium 9.2 (8.4-10.2) mg/dL Total Bilirubin 0.4 (0.2-1.3) mg/dL AST 21 (14-36) U/L ALT 20 (4-34) U/L Alkaline Phosphatase 73 (38-126) U/L Troponin I (0.000-0.034) ng/mL Total Protein 7.2 (6.3-8.2) g/dL Albumin 4.3 (3.5-5.0) g/dL Influenza Type A (PCR) (Not Detectd) Influenza Type B (PCR) (Not Detectd) RSV (PCR) (Not Detectd) SARS-CoV-2 (PCR) (Not Detectd) 07/15/24 07/15/24 Range/Units 21:28 21:28 WBC (3.8-10.6) k/uL RBC (3.80-5.40) m/uL Hgb (11.4-16.0) gm/dL Hct (34.0-46.0) % MCV (80.0-100.0) fL MCH (25.0-35.0) pg MCHC (31.0-37.0) g/dL RDW (11.5-15.5) % Plt Count (150-450) k/uL MPV Neutrophils % % Lymphocytes % % Monocytes % % Eosinophils % % Basophils % % Neutrophils # (1.3-7.7) k/uL Lymphocytes # (1.0-4.8) k/uL Monocytes # (0-1.0) k/uL Eosinophils # (0-0.7) k/uL Basophils # (0-0.2) k/uL PT (10.0-12.5) sec INR (<1.2) APTT (22.0-30.0) sec D-Dimer (<0.60) mg/L FEU Sodium (137-145) mmol/L Potassium (3.5-5.1) mmol/L Chloride (98-107) mmol/L Carbon Dioxide (22-30) mmol/L Anion Gap mmol/L BUN (7-17) mg/dL Creatinine (0.52-1.04) mg/dL Est GFR (CKD-EPI)AfAm (>60 ml/min/1.73 sqM) Est GFR (CKD-EPI)NonAf (>60 ml/min/1.73 sqM) Glucose (74-99) mg/dL Calcium (8.4-10.2) mg/dL Total Bilirubin (0.2-1.3) mg/dL AST (14-36) U/L ALT (4-34) U/L Alkaline Phosphatase (38-126) U/L Troponin I <0.012 (0.000-0.034) ng/mL Total Protein (6.3-8.2) g/dL Albumin (3.5-5.0) g/dL Influenza Type A (PCR) Not Detected (Not Detectd) Influenza Type B (PCR) Not Detected (Not Detectd) RSV (PCR) Not Detected (Not Detectd) SARS-CoV-2 (PCR) Not Detected (Not Detectd) - Radiology Data Radiology results: report reviewed, image reviewed Disposition Clinical Impression: Pneumonia, Pleurisy Disposition: HOME SELF-CARE Instructions (If sedation given, give patient instructions): Pleurisy (ED), Pneumonia (ED) Additional Instructions: Return to the emergency department with any new, worsening, or concerning symptoms. Take the antibiotic as prescribed for 5 days. The Promethazine DM co ugh syrup can be taken every 4-6 hours. Tessalon Perles can be taken up to every 8 hours as needed for coughing. Alternate with ibuprofen and Tylenol as needed for pain relief. Follow up with your primary care provider in 1-2 days. Prescriptions: Levofloxacin [Levaquin] 750 mg PO DAILY 5 Days #5 tab Promethazine/Dextromethorphan [Promethazine-Dm 6.25-15 mg/5Ml] 5 ml PO Q4-6H PRN #250 ml PRN Reason: Cough Benzonatate [Tessalon Perle] 200 mg PO Q8H PRN #20 capsule PRN Reason: Cough Is patient prescribed a controlled substance at d/c from ED?: No Referrals: Raghav Tomlin DO [Primary Care Provider] - 1-2 days Time of Disposition: 23:16
[2024-07-15] MEDS: BENZONATATE 100 MG CAP PO STA (21:20)
[2024-07-15] MEDS: DEXAMETHASONE SOD PHOSPHATE 10 MG/ML 1 ML VIAL IVP STA (21:21)
[2024-07-15] MEDS: KETOROLAC 15 MG/ML 1 ML VIAL IVP STA ×2 (21:22→23:26)
[2024-07-15] MEDS: SODIUM CHLORIDE 0.9% 1,000 ML IV STA (21:22)
[2024-07-15 21:35] LABS: Basophils # (A) 0.1 k/uL (0-0.2); Basophils % (A) 1 %; Eosinophils # (A) 0.1 k/uL (0-0.7); Eosinophils % (A) 1 %; HCT 40.3 % (34.0-46.0); HGB 13.5 gm/dL (11.4-16.0); Lymphocytes # (A) 3.2 k/uL (1.0-4.8); Lymphocytes % (A) 33 %; MCH 31.3 pg (25.0-35.0); MCHC 33.4 g/dL (31.0-37.0); MCV 93.6 fL (80.0-100.0); Mean Platelet Volume 7.3; Monocytes # (A) 0.5 k/uL (0-1.0); Monocytes % (A) 5 %; Neutrophils # (A) 5.7 k/uL (1.3-7.7); Neutrophils % (A) 59 %; Platelet Count 229 k/uL (150-450); RDW 12.1 % (11.5-15.5); WBC 9.7 k/uL (3.8-10.6)
[2024-07-15 21:48] LABS: ALT 20 U/L (4-34); AST 21 U/L (14-36); African American GFR (CKD) >90 (>60 ml/min/1.73 sqM); Albumin 4.3 g/dL (3.5-5.0); Alkaline Phosphatase 73 U/L (38-126); Anion Gap 7 mmol/L; Blood Urea Nitrogen 11 mg/dL (7-17); Calcium 9.2 mg/dL (8.4-10.2); Carbon Dioxide 23 mmol/L (22-30); Chloride 108 mmol/L (98-107); Glucose 99 mg/dL (74-99); Non-African American GFR(CKD) >90 (>60 ml/min/1.73 sqM); Potassium 4.1 mmol/L (3.5-5.1); Sodium 138 mmol/L (137-145); Total Bilirubin 0.4 mg/dL (0.2-1.3); Total Protein 7.2 g/dL (6.3-8.2)
--- NOTE | 2024-07-15 21:49 | XR ---
EXAMINATION TYPE: XR chest 2V DATE OF EXAM: 07/15/2024 9:37 PM CLINICAL INDICATION:Female, 34 years old with history of Cough, CHASE; [facility] COMPARISON: Chest radiographs from TECHNIQUE: XR chest 2V Frontal view of the chest. FINDINGS: Lungs/Pleura: There is no evidence of pleural effusion or pneumothorax. Hazy opacifications are seen in the right lower lung. Pulmonary vascularity: Unremarkable. Heart/mediastinum: Cardiomediastinal silhouette is unremarkable. Musculoskeletal: No acute osseous pathology. Other findings: None IMPRESSION: Hazy airspace disease in the right lower lung may relate to an infectious/inflammatory process. [facility], , 07/15/2024 9:47 PM
[2024-07-15 21:50] LABS: INR 0.8 (<1.2); Prothrombin Time 9.6 sec (10.0-12.5)
[2024-07-15] MEDS: LEVOFLOXACIN 750MG-D5W PMX 750 MG in DEXTROSE/WATER 1 150ML.BAG IVPB STA (22:10)
[2024-07-15] MEDS: guaiFENesin-Coden 100-10MG/5ML 10 ML CUP PO STA (22:46)
[2024-07-15] MEDS: ACET/COD 300 MG/30 MG STARTER PACK 6 TAB BTL PO STA (23:26)
[2024-07-15 23:31] VITALS: BP 116/92; PULSE 71; RESP 18
== END 2024-07-15 23:38 | disposition home or self-care (01) ==
LOC: EC 20:36
DX: J18.9 Pneumonia, unspecified organism (principal); R09.1 Pleurisy; Z88.0 Allergy status to penicillin; Z88.2 Allergy status to sulfonamides; Z87.891 Personal history of nicotine dependence
CPT/HCPCS: 36415; 93005; 85379; 80053; 84484; 85025; 85610; 85730; 87636; 71046; 99285; 96365; 96361; 96375 ×2; 96376; J1100; J1956; J1885